=== PATIENT | male | born 1975 | race Two or more races ===

== ENCOUNTER 2021-09-04 20:42 | Emergency (ER) | payer MEDICAID ==
[~2021-09-04] VITALS: Ht 162.6 cm; Wt 84.8 kg
[2021-09-04 21:10] VITALS: BP 127/78
--- NOTE | 2021-09-04 21:13 | NUR ---
TO LOBBY A/W BED AMBULATORY
--- NOTE | 2021-09-04 21:24 | NUR ---
PT TAKEN TO XRAY FROM [facility]
[2021-09-04] MEDS ORDERED: KETOROLAC 60 MG/2 ML VIAL IM ONE (22:50)
[2021-09-04] MEDS ORDERED: ACET-8386 PO (22:54)
[2021-09-04] MEDS ORDERED: IBUP-2213 PO (22:54)
--- NOTE | 2021-09-04 23:10 | NUR ---
Patient discharged with v/s stable. Written and verbal after care instructions given and explained. Patient alert, oriented and verbalized understanding of instructions. Ambulatory with steady gait. All questions addressed prior to discharge. ID band removed. Patient advised to follow up with PMD. Rx of NORCO AND MOTRIN given. Patient educated on indication of medication including possible reaction and side effects. Opportunity to ask questions provided and answered.
== END 2021-09-04 23:10 | disposition home or self-care (01) ==
LOC: MED 20:42
DX: M25.532 Pain in left wrist (principal); W11.XXXA Fall on and from ladder, initial encounter; Y93.89 Activity, other specified; Y92.89 Other specified places as the place of occurrence of the external cause; Y99.8 Other external cause status
CPT/HCPCS: 29125; 73110; 96372; 99283; J1885